=== PATIENT | male | born 1965 | race Caucasian/White ===

== ENCOUNTER → 2018-10-22 | Outpatient (CLI) | payer BC ==
--- NOTE | 2018-10-22 22:21 | MR ---
EXAMINATION TYPE: MR lumbar spine wo con DATE OF EXAM: 10/22/2018 COMPARISON: MRI lumbar spine September 21, 2011 HISTORY: Low back pain, spinal stenosis TECHNIQUE: Multiplanar, multisequence imaging of the lumbar spine is performed without IV contrast. FINDINGS: Sagittal images of the lumbar spine show vertebral body heights to appear satisfactory. The re is persistent levoconvex scoliotic curvature centered in the lower lumbar spine. There is new slig ht reactive dextroconvex curvature centered at L2-L3 level. Multilevel disc desiccation and disc spac e narrowing is present at this space narrowing fairly advanced L2-L3 through the L5-S1 levels. Findin gs most prominent at L2-L3 level where there is Modic type I degenerative change left aspect seen. Th e conus medullaris is normal in position and signal ending T12-L1 disc space level. [id number] multilevel anterior spurring is present. Axial images at the T12-L1 and L1-L2 levels show mild facet degenerative changes bilaterally and liga mentum flavum hypertrophy. There is mild broad disc bulge L1-L2 level with some effacement of the ant erior thecal sac. Axial images at L2-L3 level show moderate to advanced broad disc bulge effacing the anterior thecal s ac with mild facet arthropathy bilaterally, disc herniation causes mild to moderate left greater than right bilateral neural foraminal narrowing. Axial images at L3-L4 level to moderate facet degenerative changes and ligamenta flava hypertrophy wi th moderate to advanced broad disc bulge effacing anterior thecal sac and mild/moderate bilateral george ral foraminal narrowing. Axial images at the L4-L5 level show moderate facet degenerative changes bilaterally. There is broad disc bulge with central disc protrusion component effacing the anterior thecal sac. There is moderate right inferior neural foraminal narrowing. Left-sided neural foramina is patent. Axial images at L5-S1 level some mild facet degenerative changes bilaterally there is right paracentr al disc protrusion mildly effacing anterior thecal sac and causing [id number] right-sided neura l foraminal narrowing. Left-sided neural foramina is patent. No suspicious incidental retroperitoneal findings are seen. IMPRESSION: Scoliotic curvature with multilevel degenerative changes as detailed above, progression f rom 2011 MRI study is noted.
== END | disposition home or self-care (01) ==
LOC: RADMRIMAIN 21:27
PROVIDERS: ATTEND Orthopaedic Surgery
DX: M41.86 Other forms of scoliosis, lumbar region (principal); M47.816 Spondylosis without myelopathy or radiculopathy, lumbar region
CPT/HCPCS: 72148